=== PATIENT | male | born 1965 | race Caucasian/White ===

== ENCOUNTER → 2018-12-26 07:31 | Outpatient (CLI) | payer OTHER, SELFPAY ==
--- NOTE | 2018-12-26 | CA_ITS ---
APPROVED REPORT Exam: Exercise Treadmill Technologist: Vera Murcia Ht: 6 ft 2 in Wt: 200 lbs BSA: 2.17 m2 HR: 79 bpm BP: 129/95 mmHg Indications: Presynope, Chest pain, Shortness of Breath, Dizziness Stress Test Details Test: Exercise stress testing was performed using a [place] protocol. HR Resting HR: 90 bpm Max Heart Rate (APMHR): 165 bpm Max HR Achieved: 146 bpm Target HR (85% APMHR): 140 bpm % of APMHR: 88 Recovery HR: 97 bpm BP Resting BP: 129.0/95.0 mmHg Max BP: 186.0/90.0 mmHg Recovery BP: 147.0/96.0 mmHg ECG Clinical Exercise duration: 05:01 min Highest Stage Achieved: Exercise capacity: 7.0 METs Stress ECG Conclusion Resting ECG: Sinus rhythm with occasional PAC (abnormal rhythm). [place] protocol completed. Patient exercised 05:01. Test stopped due to shortness of breath. Symptoms: Shortness of breath at peak exercised, resolved in recovery. Arrhythmias/Ectopy: Occasional PAC, occasional PVC, occasional atrial complexes. 4 beat run of Ventricular Tachycardia. ST-T Changes: Greather than 1.5mm ST depression Conclusion: Images to follow. Electronically signed by : Kenny Prince, 12/26/2018 21:29:38
--- NOTE | 2018-12-26 07:35 | CA_ITS ---
APPROVED REPORT EXAM: Comprehensive 2D, Doppler, and color-flow Echocardiogram Tire Layer: Мария Degroot RDCS Ht: 6 ft 0 in Wt: 192lbs BSA: 2.09 BP: 164/84 mmHg Indications: Abnormal ECG, Chest Pain, COPD, Shortness of Breath, Syncope, Hypertension/HDD 2D Dimensions LVOT 2.10 cm (M/F) 1.5-2.5 M-Mode Dimensions RVDd 3.50 cm (0.9-2.6) LA Diam 2.70 cm (1.9-4.0) LVDd 6.00 cm (3.5-5.7) Ao Diam 4.40 cm (2.0-3.7) LVDs 4.70 cm (3.5-5.7) AV Cusp 2.30 cm (1.5-2.6) IVSd 0.90 cm (0.6-1.1) PWd 1.00 cm (0.6-1.1) EF (Teich) 43.30% FS 21.70% EDV (Teich) 180.00 mL ESV (Teich) 102.00 mL LV Diastology E/A Ratio 0.8 MED E' 9.26 (< 7 cm/sec) E'/MED E' Ratio 7.00 (>14) LAT E' 10.00 (<10 cm/sec) E/LAT E' Ratio 6.50 (>14) Mitral Valve MV E Max Baljinder. 65.20 (40-130 cm/s) MV A Velocity 86.40 (40-130 cm/s) E/A Ratio 0.80 Left Ventricle Left atrium is mildly enlarged, left ventricle is normal size, mild concentric left ventricular hypertrophy, visually estimated ejection fraction 50%, with basal septum and inferior basal wall are moderately hypokinetic, grade 1 diastolic dysfunction seen without tissue Doppler evidence of raise left atrial pressure. Right Ventricle Right atrium and right ventricle mildly enlarged with normal contractility. Aortic Valve Aortic valve is minimally thickened and fibrosed, there is no aortic stenosis, there is no aortic insufficiency. Mitral Valve Mitral valve is grossly normal, there is mild mitral regurgitation. Tricuspid Valve Tricuspid valve is grossly normal, there is mild tricuspid regurgitation. Pulmonic Valve Pulmonic valve is poorly visualized. Great Vessels Aortic root is normal size. Pericardium No significant pericardial effusion noted. Conclusion 1. Mild biatrial enlargement, normal left ventricular size, mild concentric left ventricular hypertrophy, visually estimated ejection fraction 50% with segmental wall motion abnormality described above, grade 1 diastolic dysfunction seen without tissue Doppler evidence of raise left atrial pressure. 2. Mildly enlarged right ventricle with normal contractility. 3. Mild mitral and tricuspid regurgitation 4. No significant pericardial effusion noted. Electronically signed by : Kenny Prince, 12/27/2018 06:32:27
--- NOTE | 2018-12-26 07:35 | CA_ITS ---
APPROVED REPORT Human Resources Hr Generalist: Ysabel Blankenship RVT Laterality: Bilateral Study Quality: Good Indications: dizziness, near syncope Risk Factors Smoking Doppler Spectral Velocity Analysis ECA (R) 102.00/11.50 cm/s ECA (L) 129.00/12.60 cm/s dICA (R) 68.90/20.40 cm/s dICA (L) 79.40/21.80 cm/s Radha (R) 62.50/19.10 cm/s Radha (L) 57.30/19.90 cm/s pICA (R) 51.70/17.90 cm/s pICA (L) 49.20/16.40 cm/s dCCA (R) 61.30/13.40 cm/s dCCA (L) 72.30/14.10 cm/s pCCA (R) 95.10/13.40 cm/s pCCA (L) 95.90/16.50 cm/s Vert (R) 66.40/13.40 cm/s Vert (L) 71.00/12.60 cm/s ICA/CCA 1.12 ICA/CCA 1.10 Findings Study suggests no stenosis seen right internal carotid artery. Study suggests <20% stenosis left internal carotid artery. Antegrade flow seen bilateral vertebral arteries. Bilateral solid thyroid nodules seen. Conclusion Study suggests no stenosis seen right internal carotid artery. Study suggests <20% stenosis left internal carotid artery. Antegrade flow seen bilateral vertebral arteries. Bilateral solid thyroid nodules seen. Largest nodule is 1.9cm on the left. Consider dedicated thyroid ultrasound. Electronically signed by : Hung Vasquez MD 12/26/2018 19:38:52
--- NOTE | 2018-12-26 07:45 | NM_ITS ---
APPROVED REPORT Exam: Nuclear Stress Test Indication: chest pain, fatigue Patient Location: Outpatient Stress Tech: Vera Murcia MD Tech:Julianna Groves KARYN RT(R)(N) Ht: 6 ft 2 in Wt: 200 lbs HR: 79 bpm BP: 129/95 mmHg BSA: 2.17 m2 BMI: 25.6 History: chest pain, fatigue Procedure: Patient exercised on [place] protocol 5 minutes and sec, resting heart rate 79 bpm, resting blood pressure 129/95 mmHg, with exercise maximum heart rate achived was 146 bpm which is 88 % of the maximum predicted heart rate and blood pressure was 186/90 mmHg. Test was stopped due to Shortness of breath. Patient denied any complaint of chest pain. Patient has Adequate exercise capacity, achieved 7.0 METs of workload on treadmill, the blood pressure response to exercise was Adequate. Electrocardiogram Sinus rhythm nonspecific ST-T changes, with exercise there is additional millimeter ST segment depression noted from the baseline EKG. 4 beat run of nonsustained VT was also seen. The EKG portion of the exercise Myoview is nondiagnostic due to baseline abnormal EKG. Cardiac Stress and Resting SPECT Images: Cardiac Stress and Resting SPECT images were obtained using technetium 99m Myoview 31.2 mCi stress and 9.72 mCi at rest. Gated SPECT with analysis of segmental wall motion and calculation of the ejection fraction also done. Cardiac stress and resting SPECT images show uniform myocardial activity without segmental perfusion abnormality, computer derived ejection fraction 58% with no regional wall motion abnormality, right ventricle is normal size and contractility. Conclusion: 1. The EKG portion of the exercise Myoview is nondiagnostic due to baseline abnormal EKG, patient has adequate exercise capacity achieved 7 mets of workload on treadmill, the blood pressure response to exercise was adequate, there was 4 beat of nonsustained VT also seen. 2. No scintigraphic evidence of reversible ischemia seen, computer derived ejection fraction is 58% with no regional wall motion abnormality, right ventricle is normal size and contractility. Electronically signed by : Kenny Prince, 12/26/2018 21:32:30
--- NOTE | 2018-12-26 10:02 | HMH.ITSHM ---
Current Home Medications as stated by this patient John Romero or corporate representative. []bp med
== END ==
PROVIDERS: PCP Pediatrics; Visit Provider Nurse Practitioner Family
DX: R07.9 Chest pain, unspecified (principal); R06.09 Other forms of dyspnea; R42 Dizziness and giddiness; R94.31 Abnormal electrocardiogram [ECG] [EKG]; R55 Syncope and collapse; I10 Essential (primary) hypertension; F17.200 Nicotine dependence, unspecified, uncomplicated
CPT/HCPCS: 78452; 93017; 93306; 93880; A9502